=== PATIENT | female | born 1980 | race Two or more races ===

== ENCOUNTER 2018-07-07 07:35 | Emergency (ER) | payer SELFPAY ==
[~2018-07-07] VITALS: Ht 160 cm; Wt 79.4 kg
[2018-07-07 08:20] LABS: BASO # 0.1 x10^3/uL (0.0-0.2); BASO % 1 % (0-3); EOS # 0.1 x10^3/uL (0.0-0.7); EOS % 1 % (0-3); HEMATOCRIT 35.6 % (36.0-47.0); HEMOGLOBIN 12.3 g/dL (12.0-15.5); LYMPH # 1.5 x10^3/uL (1.0-4.8); LYMPH % 23 % (24-48); MEAN CORPUSCULAR HEMOGLOBIN 31 pg (25-35); MEAN CORPUSCULAR HGB CONC 34 g/dL (31-37); MEAN CORPUSCULAR VOLUME 90 fL (79-100); MONO # 0.5 x10^3/uL (0.0-1.1); MONO % 7 % (0-9); NEUT # 4.5 x10^3uL (1.8-7.7); NEUT % 68 % (31-73); PLATELET COUNT 389 x10^3/uL (140-400); RED BLOOD COUNT 3.96 x10^6/uL (3.50-5.40); RED CELL DISTRIBUTION WIDTH 14.9 % (11.5-14.5); WHITE BLOOD COUNT 6.6 x10^3/uL (4.0-11.0)
[2018-07-07 08:28] LABS: CALCIUM 9.4 mg/dL (8.5-10.1); CREATININE 0.6 mg/dL (0.6-1.0); GFR 111.9; POTASSIUM 3.2 mmol/L (3.5-5.1)
[2018-07-07 08:34] LABS: ALBUMIN/GLOBULIN RATIO 0.9 (1.0-1.7); MAGNESIUM 1.7 mg/dL (1.8-2.4); TOTAL BILIRUBIN 0.4 mg/dL (0.2-1.0); TOTAL PROTEIN 8.5 g/dL (6.4-8.2)
[2018-07-07 08:54] VITALS: BP 136/75
--- NOTE | 2018-07-07 08:56 | PHYS DOC ---
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 Current Medications Current Medications Current Medications Medications (Trade) Dose Ordered Sig/Lorena Start Time Stop Time Status Last Admin Dose Admin Potassium Chloride (KCl Oral Soln) 40 meq 1X ONCE 07/07/18 08:45 07/07/18 08:46 DC Allergies Allergies Allergies Coded Allergies Type Severity Reaction Last Updated Verified No Known Drug Allergies 07/07/18 No Physical Exam Physical Exam Constitutional: Well developed, well nourished, no acute distress, non-toxic appearance. [] HENT: Normocephalic, atraumatic, bilateral external ears normal, oropharynx moist, no oral exudates, nose normal. [] Eyes: PERRLA, EOMI, conjunctiva normal, no discharge. [] Neck: Normal range of motion, no tenderness, supple, no stridor. [] Cardiovascular:Heart rate regular rhythm, no murmur [] Lungs & Thorax: Bilateral breath sounds clear to auscultation [] Abdomen: Bowel sounds normal, soft, no tenderness, no masses, no pulsatile masses. [] Skin: Warm, dry, no erythema, no rash. [] Back: No tenderness, no CVA tenderness. [] Extremities: No tenderness, no cyanosis, no clubbing, ROM intact, no edema. [] Neurologic: Alert and oriented X 3, normal motor function, normal sensory function, no focal deficits noted. [] Psychologic: Affect normal, judgement normal, mood normal. [] Current Patient Data Vital Signs Vital Signs Date Time Temp Pulse Resp B/P (MAP) Pulse Ox O2 Delivery O2 Flow Rate FiO2 07/07/18 07:42 98.3 78 18 161/81 (107) 99 Room Air 98.3 Lab Values Laboratory Tests Test 07/07/18 08:05 White Blood Count 6.6 x10^3/uL (4.0-11.0) Red Blood Count 3.96 x10^6/uL (3.50-5.40) Hemoglobin 12.3 g/dL (12.0-15.5) Hematocrit 35.6 % (36.0-47.0) L Mean Corpuscular Volume 90 fL (79-100) Mean Corpuscular Hemoglobin 31 pg (25-35) Mean Corpuscular Hemoglobin Concent 34 g/dL (31-37) Red Cell Distribution Width 14.9 % (11.5-14.5) H Platelet Count 389 x10^3/uL (140-400) Neutrophils (%) (Auto) 68 % (31-73) Lymphocytes (%) (Auto) 23 % (24-48) L Monocytes (%) (Auto) 7 % (0-9) Eosinophils (%) (Auto) 1 % (0-3) Basophils (%) (Auto) 1 % (0-3) Neutrophils # (Auto) 4.5 x10^3uL (1.8-7.7) Lymphocytes # (Auto) 1.5 x10^3/uL (1.0-4.8) Monocytes # (Auto) 0.5 x10^3/uL (0.0-1.1) Eosinophils # (Auto) 0.1 x10^3/uL (0.0-0.7) Basophils # (Auto) 0.1 x10^3/uL (0.0-0.2) Maternal Serum HCG Beta Subunit < 1 mIU/mL (0-5) Sodium Level 138 mmol/L (136-145) Potassium Level 3.2 mmol/L (3.5-5.1) L Chloride Level 100 mmol/L (98-107) Carbon Dioxide Level 25 mmol/L (21-32) Anion Gap 13 (6-14) Blood Urea Nitrogen 8 mg/dL (7-20) Creatinine 0.6 mg/dL (0.6-1.0) Estimated GFR (Cockcroft-Gault) 111.9 BUN/Creatinine Ratio 13 (6-20) Glucose Level 100 mg/dL (70-99) H Calcium Level 9.4 mg/dL (8.5-10.1) Magnesium Level 1.7 mg/dL (1.8-2.4) L Total Bilirubin 0.4 mg/dL (0.2-1.0) Aspartate Amino Transferase (AST) 28 U/L (15-37) Alanine Aminotransferase (ALT) 35 U/L (14-59) Alkaline Phosphatase 94 U/L (46-116) Total Protein 8.5 g/dL (6.4-8.2) H Albumin 4.0 g/dL (3.4-5.0) Albumin/Globulin Ratio 0.9 (1.0-1.7) L Thyroid Stimulating Hormone (TSH) 26.257 uIU/mL (0.358-3.74) H Laboratory Tests 07/07/18 08:05 Laboratory Tests 07/07/18 08:05 EKG EKG []EKG shows normal sinus rhythm rate of 76 no acute ischemic changes noted QTC 434 interpreted by me time of encounter no STEMI Radiology/Procedures Radiology/Procedures [] Course & Med Decision Making Course & Med Decision Making Pertinent Labs and Imaging studies reviewed. (See chart for details) []Otherwise healthy 37-year-old female presenting with chief complaint of palpitations for several months. I did check a TSH as part of the general palpitations evaluation it came back high suggesting hypothyroid I recommended she follow up with her primary care doctor she has insurance she says she can get in to see a doctor we did give her a clinic list. We talked about prescribing levothyroxine but because she is alert and oriented and if anything has symptoms of hyperthyroid I think we should defer for now until she has more complete testing. She is agreeable to this reassurance provided gave potassium in the emergency room take increase dietary potassium. Dragon Disclaimer Dragon Disclaimer This electronic medical record was generated, in whole or in part, using a voice recognition dictation system. Departure Departure Impression: Primary Impression: Palpitations Disposition: HOME, SELF-CARE Condition: STABLE Referrals: NO PCP (PCP) Patient Instructions: Palpitations Additional Instructions: see your primary doctor for follow up and consideration of a holter monitor Scripts No Active Prescriptions or Reported Meds ISHAAN JAIMES MD Jul 07, 2018 08:56
[2018-07-07] MEDS: POTASSIUM CHLORIDE 20 MEQ/15 ML ORAL LIQUID. PO ONE (09:17)
--- NOTE | 2018-07-07 09:21 | EKG ---
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
== END 2018-07-07 09:25 | disposition home or self-care (01) ==
LOC: ER 07:35
DX: R00.2 Palpitations (principal); R00.0 Tachycardia, unspecified; Z98.51 Tubal ligation status
CPT/HCPCS: 36415; 80053; 83735; 84443; 84702; 85025; 93005; 99284-25

== ENCOUNTER → 2018-07-17 | Outpatient (CLI) | payer OTHER ==
[2018-07-07 08:54] VITALS: BP 136/75
--- NOTE | 2018-07-17 14:09 | RAD ---
Thyroid ultrasound, 07/17/2018: HISTORY: Enlarged thyroid, abnormal TSH The right lobe of the gland measures 6.2 x 1.0 x 3.8 cm while the left lobe of the gland measures 7.0 x 2.8 x 3.3 cm. The thyroid echo pattern is heterogeneous. There is a 1.3 x 1.3 x 1.2 cm nodule in the mid to upper pole of the left lobe of the gland. This nodule is heterogeneous with a cystic component centrally. Its rim is somewhat ill-defined in some areas and medium echogenicity. No calcifications are seen. The nodule is wider than tall. No highly suspicious sonographic features are evident. There is a 5 mm cyst in the lower pole of the left lobe of the gland. A 4 mm echogenic nodule is noted in the lower pole the right lobe of the gland. IMPRESSION: 1. Enlarged, heterogeneous thyroid gland. 2. Bilateral thyroid nodules with the largest nodule lying in the left lobe and measuring 1.3 cm. Its sonographic features are nonspecific. Electronically signed by: Casa Young MD (07/17/2018 2:04 PM) [facility]
== END | disposition home or self-care (01) ==
LOC: US 07:30
PROVIDERS: ATTEND Family Medicine
DX: E04.2 Nontoxic multinodular goiter (principal)
CPT/HCPCS: 76536